=== PATIENT | female | born 1940 | race Caucasian/White ===

== ENCOUNTER 2024-07-16 09:22 | Emergency (ER) | payer OTHER ==
[2024-07-16 10:01] VITALS: BP 155/62; PULSE 67; RESP 16; TEMP 98.4; BMI 23.1
[2024-07-16] MEDS ORDERED: KETOROLAC TROMETHAMINE 15 MG/ML VIAL ONE (10:16)
[2024-07-16] MEDS: KETOROLAC TROMETHAMINE 15 MG/ML VIAL IVPUSH ONE (10:20)
[2024-07-16 10:24] LABS: URINE APPEARANCE CLEAR; URINE BILIRUBIN NEGATIVE (NEGATIVE); URINE COLOR YELLOW; URINE GLUCOSE (UA) NEGATIVE (NEGATIVE); URINE KETONE NEGATIVE (NEGATIVE); URINE LEUK ESTERASE TRACE (NEGATIVE); URINE NITRITE NEGATIVE (NEGATIVE); URINE PROTEIN NEGATIVE (NEGATIVE); URINE UROBILINOGEN 0.2 mg/dL (0.2-1.0)
[2024-07-16 10:39] LABS: HEMATOCRIT 38.2 % (32.4-45.2); HEMOGLOBIN 12.8 GM/dL (10.7-15.3); MCH 30.6 pg (25.7-33.7); MCHC 33.4 g/dl (32.0-36.0); MEAN CELL VOLUME 91.5 fl (80-96); MEAN PLT VOLUME 8.2 fl (7.5-11.1); PLATELET COUNT 310 10^3/uL (134-434); RBC 4.18 M/mm3 (3.60-5.2); RDW 14.8 % (11.6-15.6); WHITE BLOOD COUNT 8.5 K/mm3 (4.0-10.0)
[2024-07-16 10:48] LABS: POTASSIUM 4.2 mmol/L (3.5-5.1)
[2024-07-16 10:50] LABS: CALCIUM 8.9 mg/dL (8.5-10.1)
[2024-07-16 10:51] LABS: ALBUMIN 3.5 g/dl (3.4-5.0); BLOOD UREA NITROGEN 18.2 mg/dL (7-18)
[2024-07-16 10:52] LABS: MAGNESIUM 1.8 mg/dL (1.8-2.4)
[2024-07-16 10:54] LABS: CREATININE 0.6 mg/dL (0.55-1.3); PHOSPHOROUS 3.2 mg/dL (2.5-4.9)
[2024-07-16 10:55] LABS: BILIRUBIN,TOTAL 0.6 mg/dL (0.2-1); TOT PROT 6.8 g/dl (6.4-8.2)
[2024-07-16 11:36] LABS: EPI CELLS 8 /uL (0-25.1); HYALINE CASTS 0 /uL (0-3.1); URINE BACTERIA 98 /uL (0-1359); URINE RBC 10 /uL (0-23.9); URINE WBC 8 /uL (0-25.8)
== END 2024-07-16 11:10 | disposition home or self-care (01) ==
LOC: JER 09:22
PROC: 3E0333Z Introduction of Anti-inflammatory into Peripheral Vein, Percutaneous Approach (ICD-10-PCS; principal; 2024-07-16)
DX: M19.90 Unspecified osteoarthritis, unspecified site (principal); M79.10 Myalgia, unspecified site
CPT/HCPCS: 36415; 80053; 81003; 83735; 84100; 85027; 87086; 93005; 93010; 96374; 99284-25